=== PATIENT | female | born 1995 | race Two or more races ===

== ENCOUNTER 2024-01-25 03:45 | Emergency (ER) | payer MEDICAID, SELFPAY ==
[2024-01-25 03:48] VITALS: PULSE 70; RESP 20; O2SAT 99; BMI 28.5
[2024-01-25 04:03] VITALS: BP 157/92; PULSE 89; RESP 17; TEMP 36.7; O2SAT 100
--- NOTE | 2024-01-25 04:04 | XR_ITS ---
Examination: CT abdomen and pelvis without contrast. Coronal 3-D reconstructions. Sagittal 2-D reconstructions. Date and time of exam:January 25, 2024 0653 hrs. Indications: Onset right-sided flank pain beginning one week ago CTDI: vol (mGy): 8.72 DLP: (mGycm): 472 Technique: Axial images of the abdomen have been obtained, 3 mm slice thickness Intravenous contrast material has not been administered. Low dose protocols were performed. One or more of the following dose reduction techniques were used; automated exposure control, adjustment of the mA and/or KV according to patient size, use of iterative reconstruction technique. Findings: No focal liver or splenic lesions Gallstones, gallbladder wall appears thickened No pancreatic or adrenal mass No renal or ureteral calculi, no hydronephrosis Aorta normal size Normal appendix No bowel obstruction Anteverted uterus with satisfactory position intrauterine device No bladder mass or bladder calculi Osseous structures intact Impression: Suspicious for acute calculus cholecystitis, consider HIDA scan or MRCP follow-up No renal or ureteral calculi, no hydronephrosis Normal appendix No bladder mass or bladder calculi
--- NOTE | 2024-01-25 04:05 | XR_ITS ---
Examination: Abdomen sonogram, Limited Date and time of exam: January 25, 2024 0423 hrs. Indications: Right upper abdominal pain and tenderness nausea vomiting beginning one week ago Technique: Real-time bermudez scale transabdominal sonographic images of the upper abdomen obtained. Findings: Multiple gallstones Gallbladder wall measures 0.38 cm Common bile duct is enlarged 0.7 cm poorly visualized Pancreas is obscured by bowel gas Liver 16.6 cm no focal liver lesions normal hepatopedal portal venous flow Patent IVC Impression: Cholelithiasis Suspicious for cholecystitis Abnormally enlarged common bile duct Consider MRCP follow-up to confirm cholecystitis and exclude stricture or stones in the common bile duct
--- NOTE | 2024-01-25 04:11 | PD.EDABDPN ---
ED Abdominal Pain RME/HPI General Chief Complaint: Abdominal Pain Stated complaint: R flank pain Time seen by provider: 01/25/24 04:04 Arrival date/time: 01/25/24 03:45 RME / HPI RME / HPI narrative: This section includes all my notes and documentations, including HPI, PE, and ED course. Vaughn Diallo MD HPI: 28-year-old female here with about a week history of RUQ abdominal pain. Worse in the past few days with vomiting. No hematemesis or coffee-ground emesis. Decreased oral intake due to the pain. Seems to be worse with eating. No fever. No urinary symptoms. No history of abdominal surgery. No other complaints. ROS: Gastrointestinal: negative except as documented in HPI. Genitourinary: negative except as documented in HPI. Musculoskeletal: negative except as documented in HPI. Skin: negative except as documented in HPI. Neurological: negative except as documented in HPI. Physical Exam: General: Alert and oriented. In severe pain. Eyes: Conjunctivae and lids clear. Lungs: No respiratory distress. Abdomen: Soft with severe RUQ tenderness. Normal bowel sounds. No distension. No rebound or guarding. Back: No CVA tenderness. Skin: Warm and dry. Neuro: Alert and oriented X 3. I reviewed EMS notes. I ordered diagnostic test and Zofran and Toradol and morphine. At 6 AM, the care of the patient was transferred Dr. Hurtado. Vaughn Diallo MD Related Data Home Medications ?Medication ?Instructions ?Recorded ?Confirmed No Known Home Medications 01/25/24 01/25/24 Allergies Allergy/AdvReac Type Severity Reaction Status Date / Time No Known Allergies Allergy Verified 01/25/24 03:57 Course Quality Measures none Orders Category Date Time Status Saline [Insert IV] NOW Care 01/25/24 04:[address] abdomen pelvis wo con Stat Exams 01/25/24 04:04 Ordered US gall bladder Stat Exams 01/25/24 04:05 Taken Amylase Stat Lab 01/25/24 04:06 Ordered CBC Stat Lab 01/25/24 04:06 Ordered CMP [Comprehensive Metabolic Panel] Stat Lab 01/25/24 04:06 Ordered Drug Screen,Urine Stat Lab 01/25/24 04:06 Ordered HCG Qualitative,Urine Stat Lab 01/25/24 04:06 Ordered HCG,Qualitative Serum Stat Lab 01/25/24 04:06 Ordered Lipase Stat Lab 01/25/24 04:06 Ordered Magnesium Stat Lab 01/25/24 04:06 Ordered UA [Urinalysis] Stat Lab 01/25/24 04:06 Ordered Ketorolac Inj [Toradol Inj] Med 01/25/24 04:05 Discontinued 30 mg IVP X1 ONE Morphine Inj Med 01/25/24 04:05 Discontinued 4 mg IVP X1 ONE Ondansetron Inj [Zofran Inj] Med 01/25/24 04:05 Discontinued 4 mg IV X1 ONE Vital Signs Vital signs: Vital Signs Temperature 98.0 F 01/25/24 04:03 Pulse Rate 89 01/25/24 04:03 Respiratory Rate 17 01/25/24 04:03 Blood Pressure 157/92 H 01/25/24 04:03 Pulse Oximetry (%) 100 01/25/24 04:03 Oxygen Delivery Method Room Air 01/25/24 04:03 Abdominal Pain MDM Patient data External records reviewed:: None Clinical information provided by:: patient and EMS Social determinants that could affect healthcare access:: none Patient has the following chronic illnesses:: None How is presenting disease/condition affected by chronic disease/condition?: no chronic disease Evaluation data The following diagnostics were reviewed and interpreted by me:: other (specify) Lab and/or radiology exams considered but not ordered:: None Interpretation Summary: Diagnostic tests pending Medications / Prescriptions Medications or Prescriptions considered but not ordered:: None Medication administrations:: Medication Administration History Discontinued Medications Ketorolac Tromethamine (Ketorolac Inj 30 Mg/Ml Vial) 30 mg IVP X1 ONE Stop: 01/25/24 04:06 Last Admin: 01/25/24 05:05 Dose: 30 mg Documented By: DESI Morphine Sulfate (Morphine Sulf Inj 10 Mg/Ml Vial) 4 mg IVP X1 ONE Stop: 01/25/24 04:06 Last Admin: 01/25/24 05:04 Dose: 4 mg Documented By: DESI Ondansetron HCl (Ondansetron Inj 2 Mg/Ml Inj 2 Ml) 4 mg IV X1 ONE; Protocol Stop: 01/25/24 04:06 Last Admin: 01/25/24 05:05 Dose: 4 mg Documented By: DESI Zofran and Toradol and morphine Consultations Consultation(s) initiated? (list below): No Diagnosis Differential diagnosis abdominal pain: acute appendicitis, calculus of kidney, diverticulitis, gastroenteritis, pancreatitis and small bowel obstruction Most likely diagnosis given after review of the tests above:: Diagnostic tests pending Admission Indicated Admission indicated?: not indicated Admission Request Was there a request for admission?: No Disposition Plan Disposition Plan: other (specify) (Diagnostic tests pending) Discharge Plan Prescriptions/Referrals Prescriptions/Med Rec: No Action No Known Home Medications Referrals: Hoang Hahn MD [Primary Care Provider] - In 1 week Problem List Clinical Impression: Abdominal pain Patient/Caregiver Discharge Instructions Print Language: Citizen Of [place]
[2024-01-25] MEDS: MORPHINE SULF INJ 10 MG/ML VIAL 4 MG IVP (05:04)
[2024-01-25] MEDS: KETOROLAC INJ 30 MG/ML VIAL IVP (05:05)
[2024-01-25] MEDS: ONDANSETRON INJ 2 MG/ML INJ 2 ML 4 MG IV (05:05)
[2024-01-25 05:09] VITALS: BP 119/66; PULSE 76; RESP 18; TEMP 36.7; O2SAT 98
[2024-01-25 05:48] LABS: Basophils # (Auto) 0.1 Thou/mm3 (0.0-0.2); Basophils % (Auto) 0 % (0-2.5); Eosinophils # (Auto) 0.1 Thou/mm3 (0.0-0.5); Eosinophils % (Auto) 1 % (0-10); Hematocrit 35.4 % (36.0-46.0); Hemoglobin 12.3 g/dL (12.0-16.0); Immature Granulocytes % (Auto) 0 % (0-0); Immature Granulocytes Auto 0.03 Thou/mm3 (0.00-0.00); Lymphocytes # (Auto) 1.4 Thou/mm3 (1.0-4.8); Lymphocytes % (Auto) 12 % (10-50); Mean Corpuscular HGB Conc 34.7 g/dl (31.0-37.0); Mean Corpuscular Hemoglobin 33.7 pg (25.0-35.0); Mean Corpuscular Volume 97 fL (80-100); Monocytes # (Auto) 0.7 Thou/mm3 (0.0-0.8); Monocytes % (Auto) 5 % (0-12); Neutrophils # (Auto) 9.9 Thou/mm3 (1.8-7.7); Neutrophils % (Auto) 81 % (37-80); Nucleated Red Blood Cell % 0 /100 WBC (0); Platelet Count 387 Thou/mm3 (140-440); RDW Standard Deviation 44.9 fL (36.4-46.3); Red Blood Count 3.65 Miln/mm3 (4.00-5.20); White Blood Count 12.1 Thou/mm3 (3.6-11.0)
[2024-01-25 06:03] LABS: HCG,Qualitative Serum Negative
[2024-01-25 06:12] LABS: Alanine Aminotransferase 76 U/L (10-49); Albumin, Serum 4.1 gm/dL (3.5-5.0); Albumin/Globulin Ratio 1.5 (1.2-2.2); Alkaline Phosphatase 123 U/L (46-116); Amylase 53 U/L (30-118); Anion Gap 6 (7-16); Aspartate Amino Transferase 171 U/L (0-34); BUN/Creatinine Ratio 21 Ratio (12-20); Bilirubin,Total 0.8 mg/dL (0.3-1.2); Blood Urea Nitrogen 17 mg/dL (9-23); Calcium 8.2 mg/dL (8.3-10.6); Calcium (Corrected) 8.2 mg/dL (8.5-10.1); Chloride 107 mMol/L (98-107); Creatinine (Component) 0.8 mg/dL (0.6-1.3); Estimated Creatinine Clearance 96.5 mL/min (>60); Globulin 2.7 gm/dL (2.3-3.5); Glucose 111 mg/dL (74-106); Lipase 41 U/L (12-53); Magnesium 2.1 mg/dL (1.6-2.6); Osmolality,Calculated 278 (275-295); Potassium 3.5 mMol/L (3.4-5.1); Sodium 138 mMol/L (136-145); Total Protein 6.8 gm/dL (5.7-8.2); eGFR > 60 See Note
--- NOTE | 2024-01-25 08:15 | PD.EDADDENDU ---
Emergency Room Addendum Addendum Narrative: Patient is a very pleasant 28-year-old female with right upper quadrant abdominal pain for a week. She awaits imaging studies for her suspected cholecystitis. The results are back and the CT scan is suspicious for acute cholecystitis, requesting MRCP which is not available this time. I discussed the findings with the patient. She feels comfortable going home with pain medications and antibiotics and return tomorrow morning for MRCP for final diagnosis
[2024-01-25 09:11] VITALS: BP 107/68; PULSE 78; RESP 16; TEMP 36.6; O2SAT 99
== END 2024-01-25 09:11 | disposition home or self-care (01) ==
PROVIDERS: Emergency Medicine; Emergency Provider Emergency Medicine; PCP Family Medicine
DX: R10.11 Right upper quadrant pain (principal)
CPT/HCPCS: 36415; 74176; 76705; 80053; 80307; 81001; 81025; 82150; 83690; 83735; 84703; 85025; 96374; 96375; 99284; J1885; J2270; J2405

== ENCOUNTER 2024-01-26 06:25 | Emergency (ER) | payer MEDICAID, SELFPAY ==
--- NOTE | 2024-01-26 | XR_ITS ---
MRI abdomen, without contrast. MRCP Date and time of exam: January 26, 2024 0804 hours INDICATIONS: Right upper abdominal pain beginning today Technique: Multiple axial and coronal images of the abdomen have been obtained with the Siemens 1.5T MRI scanner. Images obtained included T1 weighted transverse images, T2-weighted transverse images, T2-weighted transverse images fat-suppressed, T2 weighted haste fat suppressed transverse images, T1 weighted images, in and out of phase images, T2-weighted coronal images, breath hold, T2 weighted haze coronal images as well as T2 weighted coronal thick slab images, MRCP. Findings: Mild intrahepatic biliary tract dilatation Cholelithiasis, no significant gallbladder wall thickening or edema Common hepatic duct 9 mm, 2 mm stone in in the distal common bile duct coronal image 11 Negative for pancreatitis No hydronephrosis Spleen not enlarged IMPRESSION: Cholelithiasis, negative for cholecystitis 2 mm stone in the distal common bile duct, coronal image 11
[2024-01-26 06:26] VITALS: BMI 28.5
[2024-01-26 06:32] VITALS: BP 127/85; PULSE 72; RESP 19; TEMP 36.6; O2SAT 97
--- NOTE | 2024-01-26 07:07 | PD.EDRME ---
Rapid Medical Screening Exam RME Arrival date/time: 01/26/24 06:25 28-year-old female presents emergency department complains of abdominal pain patient was evaluated yesterday instructed return to the ER for MRCP and further evaluation Chief Complaint: Recheck/Abnormal Lab/Rx Time Seen by Provider: 01/26/24 06:28 Vital signs: Vital Signs Temperature 97.8 F 01/26/24 06:32 Pulse Rate 72 01/26/24 06:32 Respiratory Rate 19 01/26/24 06:32 Blood Pressure 127/85 H 01/26/24 06:32 Pulse Oximetry (%) 97 01/26/24 06:32 Oxygen Delivery Method Room Air 01/26/24 06:32
[2024-01-26 07:37] VITALS: BP 120/83
[2024-01-26 07:38] VITALS: BP 120/83; PULSE 67; RESP 20; TEMP 36.9; O2SAT 98
--- NOTE | 2024-01-26 07:38 | PC.NURSE ---
Pt coming in from ED lobby with c/o RUQ abd pain x1 week; pt states, I was here yesterday for the same issue and they did an ultrasound of my stomach. They saw that there was a possible infection on my gallbladder and told me to come back today for an MRI of my gallbladder. Pt reports a 3/10 pain but denies N/V/diarrhea today. Pt denies any PMH. MRI pending at this time.
[2024-01-26 07:45] LABS: Basophils % (Auto) 1 % (0-2.5); Eosinophils # (Auto) 0.3 Thou/mm3 (0.0-0.5); Eosinophils % (Auto) 4 % (0-10); Hematocrit 40.5 % (36.0-46.0); Hemoglobin 13.9 g/dL (12.0-16.0); Immature Granulocytes % (Auto) 0 % (0-0); Immature Granulocytes Auto 0.02 Thou/mm3 (0.00-0.00); Lymphocytes # (Auto) 1.5 Thou/mm3 (1.0-4.8); Lymphocytes % (Auto) 26 % (10-50); Mean Corpuscular HGB Conc 34.3 g/dl (31.0-37.0); Mean Corpuscular Hemoglobin 33.7 pg (25.0-35.0); Mean Corpuscular Volume 98 fL (80-100); Monocytes # (Auto) 0.3 Thou/mm3 (0.0-0.8); Monocytes % (Auto) 6 % (0-12); Neutrophils # (Auto) 3.6 Thou/mm3 (1.8-7.7); Neutrophils % (Auto) 63 % (37-80); Nucleated Red Blood Cell % 0 /100 WBC (0); Platelet Count 428 Thou/mm3 (140-440); RDW Standard Deviation 46.2 fL (36.4-46.3); Red Blood Count 4.12 Miln/mm3 (4.00-5.20); White Blood Count 5.7 Thou/mm3 (3.6-11.0)
--- NOTE | 2024-01-26 07:49 | PC.NURSE ---
MRI called at this time to report hat pt is ready for MRI & MRI screening has been completed. Per MRI staff, will come get pt soon.
[2024-01-26 07:56] LABS: Alanine Aminotransferase 416 U/L (10-49); Albumin, Serum 4.6 gm/dL (3.5-5.0); Albumin/Globulin Ratio 1.6 (1.2-2.2); Alkaline Phosphatase 165 U/L (46-116); Anion Gap 5 (7-16); Aspartate Amino Transferase 229 U/L (0-34); BUN/Creatinine Ratio 11 Ratio (12-20); Bilirubin,Total 1.8 mg/dL (0.3-1.2); Blood Urea Nitrogen 8 mg/dL (9-23); Calcium 9.8 mg/dL (8.3-10.6); Calcium (Corrected) 9.8 mg/dL (8.5-10.1); Carbon Dioxide 25.9 mMol/L (20.0-31.0); Chloride 106 mMol/L (98-107); Creatinine (Component) 0.7 mg/dL (0.6-1.3); Estimated Creatinine Clearance 110.2 mL/min (>60); Globulin 2.9 gm/dL (2.3-3.5); Glucose 91 mg/dL (74-106); Lipase 37 U/L (12-53); Osmolality,Calculated 272 (275-295); Potassium 4.5 mMol/L (3.4-5.1); Sodium 137 mMol/L (136-145); Total Protein 7.5 gm/dL (5.7-8.2); eGFR > 60 See Note
--- NOTE | 2024-01-26 08:45 | PC.NURSE ---
@Hector- RN at bedside connecting pt back to monitor. Pt states, Is it ok if I leave and you guys just call me back if there is something wrong with my MRI results? I have to go care for my kids. I can wait until 914. @[id number]- RN made Dr. Rodrigues aware that pt only able to wait until 914 before pt has to go home for her kids. Per Dr. Rodrigues, she will need to sign an AMA form.
[2024-01-26 09:00] VITALS: BP 116/56; PULSE 66; RESP 17; TEMP 37; O2SAT 95
--- NOTE | 2024-01-26 09:18 | PC.NURSE ---
RN at bedside with pt; pt states, I need to leave now; it's taking too long & I need to care for my kids. Pt educated about risks & benefits of leaving AMA. Pt A&Ox4, GCS 15. Pt signed AMA form and encouraged to return.
== END 2024-01-26 09:20 | disposition left against medical advice (07) ==
LOC: SERX 06:41
PROVIDERS: Nurse Practitioner Primary Care; Emergency Provider Emergency Medicine
DX: R10.11 Right upper quadrant pain (principal); Z53.29 Procedure and treatment not carried out because of patient's decision for other reasons
CPT/HCPCS: 36415; 80053; 83690; 85025; 99284; S8037; 74181

== ENCOUNTER 2024-03-08 17:44 | Emergency (ER) | payer MEDICAID, SELFPAY ==
[2024-03-08 17:54] VITALS: BP 158/84; PULSE 86; RESP 22; TEMP 36.6; O2SAT 99; BMI 30.9
--- NOTE | 2024-03-08 18:13 | PD.EDRME ---
Rapid Medical Screening Exam RME Arrival date/time: 03/08/24 17:44 28-year-old female recently had cholecystectomy done yesterday presents emergency department complaining of abdominal pain with nausea vomiting. Chief Complaint: Abdominal Pain Time Seen by Provider: 03/08/24 18:05 Vital signs: Vital Signs Temperature 97.9 F 03/08/24 17:54 Pulse Rate 86 03/08/24 17:54 Respiratory Rate 22 H 03/08/24 17:54 Blood Pressure 158/84 H 03/08/24 17:54 Pulse Oximetry (%) 99 03/08/24 17:54 Oxygen Delivery Method Room Air 03/08/24 17:54 Vital signs reviewed by provider: Yes
[2024-03-08] MEDS: KETOROLAC INJ 60 MG/2 ML VIAL 30 MG IM (18:24)
[2024-03-08] MEDS: METOCLOPRAMIDE INJ 5 MG/ML VIAL 2 ML 10 MG IM (18:24)
[2024-03-08 19:01] LABS: Basophils % (Auto) 0 % (0-2.5); Eosinophils % (Auto) 0 % (0-10); Hematocrit 40.4 % (36.0-46.0); Hemoglobin 14.2 g/dL (12.0-16.0); Immature Granulocytes % (Auto) 0 % (0-0); Immature Granulocytes Auto 0.03 Thou/mm3 (0.00-0.00); Lymphocytes # (Auto) 0.5 Thou/mm3 (1.0-4.8); Lymphocytes % (Auto) 5 % (10-50); Mean Corpuscular HGB Conc 35.1 g/dl (31.0-37.0); Mean Corpuscular Hemoglobin 33.9 pg (25.0-35.0); Mean Corpuscular Volume 96 fL (80-100); Monocytes # (Auto) 0.1 Thou/mm3 (0.0-0.8); Monocytes % (Auto) 1 % (0-12); Neutrophils # (Auto) 9.8 Thou/mm3 (1.8-7.7); Neutrophils % (Auto) 94 % (37-80); Nucleated Red Blood Cell % 0 /100 WBC (0); Platelet Count 423 Thou/mm3 (140-440); Red Blood Count 4.19 Miln/mm3 (4.00-5.20); White Blood Count 10.5 Thou/mm3 (3.6-11.0)
[2024-03-08 19:10] LABS: HCG,Qualitative Serum Negative
[2024-03-08 19:12] LABS: Alanine Aminotransferase 19 U/L (10-49); Albumin/Globulin Ratio 1.7 (1.2-2.2); Alkaline Phosphatase 75 U/L (46-116); Anion Gap 11 (7-16); Aspartate Amino Transferase 21 U/L (0-34); BUN/Creatinine Ratio 13 Ratio (12-20); Bilirubin,Total 1.4 mg/dL (0.3-1.2); Blood Urea Nitrogen 9 mg/dL (9-23); Calcium 9.7 mg/dL (8.3-10.6); Calcium (Corrected) 9.7 mg/dL (8.5-10.1); Carbon Dioxide 19.8 mMol/L (20.0-31.0); Chloride 104 mMol/L (98-107); Creatinine (Component) 0.7 mg/dL (0.6-1.3); Estimated Creatinine Clearance 114.7 mL/min (>60); Glucose 150 mg/dL (74-106); Lipase 36 U/L (12-53); Osmolality,Calculated 271 (275-295); Potassium 4.4 mMol/L (3.4-5.1); Sodium 135 mMol/L (136-145); eGFR > 60 See Note
--- NOTE | 2024-03-08 19:29 | EDNOTE_ITS ---
ED Abdominal Pain RME/HPI General Chief Complaint: Abdominal Pain Stated complaint: ABD PAIN, N/V Time seen by provider: 03/08/24 18:05 Arrival date/time: 03/08/24 17:44 Source: patient Mode of arrival: ambulatory Limitations: no limitations RME / HPI RME / HPI narrative: 03/08/24 17:44 28-year-old female recently had cholecystectomy done yesterday presents emerge ncy department complaining of abdominal pain with nausea vomiting. Dr. Lai?s Main ED Evaluation: 28-year-old female s/p cholecystectomy at [facility] this past day released at 12PM brought in by family member who presents to the emergency department for complaints of severe generalized abdominal pain. Family member at bedsides provides the history. He states patient has had nausea and vomiting continuously since being released. She has been NPO since 10PM last night and has been unable to tolerate PO intake including liquids. She has had multiple episodes of nonbloody, bilious vomiting and severe nausea. He also reports subjective fever and chills. He notes she was prescribed Percocet and stool softener but the prescriptions were not availble for pick-up. Patient comes in for further evaluation of her post operative pain. Related Data Previous Rx's ?Medication ?Instructions ?Recorded amoxicillin 500 mg-potassium 1 tab PO BID #14 tabs 01/25/24 clavulanate 125 mg tablet (Augmentin) hydrocodone 5 mg-acetaminophen 325 1 tab PO Q6H PRN pain #10 tabs 01/25/24 mg tablet oxycodone-acetaminophen 5 mg-325 1 tab PO Q8H PRN pain #12 tabs 03/09/24 mg tablet (Percocet) Allergies Allergy/AdvReac Type Severity Reaction Status Date / Time No Known Allergies Allergy Verified 01/25/24 03:57 Review of Systems Review of Systems Systems Reviewed: All systems reviewed, normal except as documented Past Medical History Past Medical History CARDIAC: Negative Congestive Heart Failure RESPIRATORY: Negative Chronic Obstructive Pulmonary Disease (COPD) GENITOURINARY: Negative Renal Disease ENDOCRINE: Negative Diabetes Mellitus Type 1 or Diabetes Mellitus Type 2 Social History SMOKING STATUS: Never smoker ED Exam Narrative Physical exam: GENERAL APPEARANCE: alert and oriented x 4, well-developed, well-nourished, moderate to severe pain distress VITALS: All vitals were reviewed and the pulse ox is 99% on room air, which is normal according to my interpretation. HEENT: Normocephalic, atraumatic; pupils equal, round, reactive to light; EOMI; mucous membranes pink, moist; oropharynx clear NECK: Supple LUNGS: CTABL; no wheezes, no rales, no rhonchi HEART: Regular rate, regular rhythm; normal S1, S2; no murmurs ABDOMEN: non distended; normal BS; soft, generalized abdominal tenderness, no rigidity; no masses, no organomegaly, no hernia. There are multiple fresh anterior abdominal surgical scars with no active bleeding, no surrounding erythema, well-appearing. BACK: no CVA tenderness EXTREMITIES: atraumatic; no edema NEUROLOGIC: awake; alert and oriented x4; cranial nerves II-XII grossly intact; no focal sensory or motor deficits PSYCHIATRIC: appropriate mood and affect SKIN: warm, dry, normal color; no rashes General Limitations: Present no limitations Course Quality Measures none Orders Category Date Time Status CT Screening NOW Care 03/08/24 19:42 Completed Province Archivist STAT Care 03/08/24 19:40 Completed Continuous Pulse Oximetry STAT Care 03/08/24 19:41 Completed EKG (ED ONLY) *Do not use* NOW Care 03/08/24 19:40 Completed Insert IV STAT Care 03/08/24 19:40 Completed NPO STAT Care 03/08/24 19:[address] abdomen pelvis w con Stat Exams 03/08/24 19:42 Completed EKG (ED Only) Stat Exams 03/08/24 19:40 Draft CBC Stat Lab 03/08/24 18:27 Completed CMP [Comprehensive Metabolic Panel] Stat Lab 03/08/24 18:27 Completed HCG,Qualitative Serum Stat Lab 03/08/24 18:27 Completed Lipase Stat Lab 03/08/24 18:27 Completed Magnesium Stat Lab 03/08/24 18:27 Completed Partial Thromboplastin Time Stat Lab 03/08/24 18:27 Completed Prothrombin Time with INR Stat Lab 03/08/24 18:27 Completed HYDROmorphone INJ [Dilaudid Inj] Med 03/08/24 19:40 Discontinued 0.5 mg IVP Q30MIN PRN HYDROmorphone INJ [Dilaudid Inj] Med 03/09/24 00:22 Discontinued 0.5 mg IVP X1 ONE Ketorolac Inj [Toradol Inj] Med 03/08/24 18:13 Discontinued 30 mg IM X1 ONE Metoclopramide Inj [Reglan Inj] Med 03/08/24 18:13 Discontinued 10 mg IM X1 ONE Sodium Chloride 0.9% 1000 ml [Ns] 1,000 ml Med 03/08/24 19:40 Discontinued IV 999 mls/hr Reevaluation(s) Reevaluation #1: Patient states she feels better compared to when she initially came in. Patient is given water and crackers to see if she can tolerate by mouth. Time: 23:14 Reevaluation #2: Patient tolerated PO fluids. Patient is stable to be discharged home. Time: 23:51 Vital Signs Vital signs: Vital Signs Temperature 97.9 F 03/08/24 17:54 Pulse Rate 86 03/08/24 17:54 Respiratory Rate 22 H 03/08/24 17:54 Blood Pressure 158/84 H 03/08/24 17:54 Pulse Oximetry (%) 99 03/08/24 17:54 Oxygen Delivery Method Room Air 03/08/24 17:54 Procedures -ED Procedure Comment Patient's EKG at 20:07 showed normal sinus rhythm at 71 with normal axis, no ectopy. ST abnormalities in the inferior leads but no signs of STEMI. Abdominal Pain MDM MDM Narrative MDM Narrative:: Scribe Attestation: Mike Dunham, am scribing for and in the presence of Dr. Lai. Provider Notation: Although this document has been carefully reviewed, there may still be some phonetic and other typographical errors. These errors are purely grammatical due to imperfections in the software program and should not be construed in any way to compromise the substance of the patient's medical care during this visit. Patient data External records reviewed:: [facility] previous records Clinical information provided by:: patient Social determinants that could affect healthcare access:: none Patient has the following chronic illnesses:: None How is presenting disease/condition affected by chronic disease/condition?: uneffected by Evaluation data The following diagnostics were reviewed and interpreted by me:: lab results, radiology exam(s) and EKG tracing(s) (done at 2006, NSR, rate of 71, normal axis, no ectopy, nonspecific inferior wall ST abnormalities, no STEMI, according to my interpretation.) Lab and/or radiology exams considered but not ordered:: None Interpretation Summary: [facility] Report Signed Patient: KEVIN BALL Record#: [id number] Birthdate: 1995 Age/Sex: 28 / F [facility] Att[facility] Dr: Ordering Physician: Emil Lai MD Date of Service: 03/08/24 Procedure(s): CT abdomen pelvis w con Accession Number(s): [id number] cc: Dez Lee MD; NO PRIMARY/FAMILY,PHYSICIAN; Emil Lai MD~ Examination: CT abdomen with intravenous contrast CT pelvis with intravenous contrast 2-D coronal reconstructions 2-D sagittal reconstructions Date and time of exam:March 08, 2024 0940 hrs. Indications: Abdominal pain nausea vomiting status post cholecystectomy today. CTDI: vol (mGy) 8.21 DLP: (mGycm) 498 Technique: Multiple axial sections of the abdomen and pelvis have been obtained. 64 slice high-resolution scanner used. 3 mm axial sections have been obtained, post intravenous injection 60 cc [id number] 2-D sagittal, coronal reconstructions obtained. Low dose protocols were performed. One or more of the following dose reduction techniques were used; automated exposure control, adjustment of the mA and/or KV according to patient size, use of iterative reconstruction technique. Findings: Pneumoperitoneum Absent gallbladder Small fluid collection in the gallbladder fossa 4.7 x 2.6 cm No extrahepatic biliary tract dilatation No gallstones No renal or ureteral calculi, no hydronephrosis Aorta normal size Normal appendix Mild free fluid in the abdomen and pelvis Intrauterine device satisfactory position Urinary bladder intact Impression: Postop pneumoperitoneum Fluid collection in the gallbladder fossa 4.7 x 2.6 cm, differential would include hematoma, biliary leak Suggest follow-up HIDA scan to assess for biliary leak as clinically warranted Dictated By: Dez Lee MD Signed By: <Electronically signed by Dez Lee MD in OV> 03/08/24 2238 Medications / Prescriptions Medications or Prescriptions considered but not ordered:: None Medication administrations:: Medication Administration History Discontinued Medications Hydromorphone HCl (Hydromorphone Inj 2 Mg/Ml Vial) 0.5 mg IVP Q30MIN PRN PRN Reason: abdominal pain Stop: 03/08/24 22:42 Last Admin: 03/08/24 20:35 Dose: 0.5 mg Documented By: ANA MARÍA Admin: 03/08/24 19:50 Dose: 0.5 mg Documented By: ANA MARÍA Hydromorphone HCl (Hydromorphone Inj 2 Mg/Ml Vial) 0.5 mg IVP X1 ONE Stop: 03/09/24 00:23 Last Admin: 03/09/24 00:36 Dose: 0.5 mg Documented By: MOR Sodium Chloride (Ns) 1,000 mls @ 999 mls/hr IV .Q1H1M ONE Stop: 03/08/24 20:40 Last Infusion: 03/08/24 21:52 Dose: Infused Documented By: ANA MARÍA Admin: 03/08/24 19:49 Dose: 999 mls/hr Documented By: ANA MARÍA Ketorolac Tromethamine (Ketorolac Inj 60 Mg/2 Ml Vial) 30 mg IM X1 ONE Stop: 03/08/24 18:14 Last Admin: 03/08/24 18:24 Dose: 30 mg Documented By: BONG Metoclopramide HCl (Metoclopramide Inj 5 Mg/Ml Vial 2 Ml) 10 mg IM X1 ONE; Protocol Stop: 03/08/24 18:14 Last Admin: 03/08/24 18:24 Dose: 10 mg Documented By: BONG As above Consultations Consultation(s) initiated? (list below): No Diagnosis Differential diagnosis abdominal pain: other (vomiting associated with post- operative pain, surgical complication, surgical abscess, biliary leak, post surgical bleeding) Most likely diagnosis given after review of the tests above:: see below Admission Indicated Admission indicated?: not indicated Admission Request Was there a request for admission?: No Disposition Plan Disposition Plan: Discharge Discharge Attestation Discharge Attestation: The patient and all family members were given an opportunity to ask questions and understood the discharge instructions. Discharge instructions specifically effects, indications for sooner follow up or return to the emergency department, and the expected course of current diagnosis. Patient condition: Stable Discharge Plan Plan Patient Disposition: HOME (Self Care) Disposition Comment: Stable for discharge Patient condition on transfer: Stable Prescriptions/Referrals Prescriptions/Med Rec: New oxycodone-acetaminophen [Percocet] 5-325 mg tablet 1 tab PO Q8H MDD 3 PRN (Reason: pain) Qty: 12 0RF No Action hydrocodone-acetaminophen 5-325 mg tablet 1 tab PO Q6H MDD 4 tab PRN (Reason: pain) Qty: 10 0RF amoxicillin-pot clavulanate [Augmentin] 500-125 mg tablet 1 tab PO BID Qty: 14 0RF Referrals: No Primary/Family,Physician [Primary Care Provider] - In 1 week Problem List Clinical Impression: Post-operative pain, Post-operative nausea and vomiting Patient/Caregiver Discharge Instructions Discharge Activity: activity as tolerated Education Materials: Complementary Care for Pain, Taking Opioid Medicines, Managing Post-Op Pain at Home, ED Diet for Vomiting or ... Additional Instructions: If you not improving within the next day or so or if you are worsening in any way please feel free to return to the emergency department right away and we will help you Otherwise you should follow-up with your primary care doctor within the next several days as well as your surgeon on your next scheduled postop visit. We have called in a prescription for you for Percocet at your pharmacy. Please take this medication as directed. Print Language: [place] Stand Alone Forms: Bonnie Award Info., Patient Portal Info Letter
--- NOTE | 2024-03-08 19:40 | EKG_ITS ---
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
--- NOTE | 2024-03-08 19:42 | XR_ITS ---
Examination: CT abdomen with intravenous contrast CT pelvis with intravenous contrast 2-D coronal reconstructions 2-D sagittal reconstructions Date and time of exam:March 08, 2024 0940 hrs. Indications: Abdominal pain nausea vomiting status post cholecystectomy today. CTDI: vol (mGy) 8.21 DLP: (mGycm) 498 Technique: Multiple axial sections of the abdomen and pelvis have been obtained. 64 slice high-resolution scanner used. 3 mm axial sections have been obtained, post intravenous injection 60 cc [id number] 2-D sagittal, coronal reconstructions obtained. Low dose protocols were performed. One or more of the following dose reduction techniques were used; automated exposure control, adjustment of the mA and/or KV according to patient size, use of iterative reconstruction technique. Findings: Pneumoperitoneum Absent gallbladder Small fluid collection in the gallbladder fossa 4.7 x 2.6 cm No extrahepatic biliary tract dilatation No gallstones No renal or ureteral calculi, no hydronephrosis Aorta normal size Normal appendix Mild free fluid in the abdomen and pelvis Intrauterine device satisfactory position Urinary bladder intact Impression: Postop pneumoperitoneum Fluid collection in the gallbladder fossa 4.7 x 2.6 cm, differential would include hematoma, biliary leak Suggest follow-up HIDA scan to assess for biliary leak as clinically warranted
[2024-03-08] MEDS: SODIUM CHLORIDE 0.9% 1000 ML 1,000 ML 999 ML IV (19:49)
[2024-03-08] MEDS: HYDROmorphone INJ 2 MG/ML VIAL 0.5 MG IVP ×2 (19:50→20:35)
[2024-03-08 20:05] VITALS: BP 133/89; PULSE 70; RESP 16; O2SAT 100
[2024-03-08 20:09] LABS: INR 1.1 (0.9-1.3); Partial Thromboplastin Time 26.3 Seconds (22.0-36.0); Prothrombin Time 11.5 Seconds (9.0-12.2)
[2024-03-08 20:17] LABS: Magnesium 1.8 mg/dL (1.6-2.6)
[2024-03-08 22:46] VITALS: BP 122/78; PULSE 62; RESP 17; TEMP 36.6; O2SAT 98
[2024-03-08 23:42] VITALS: BP 130/85; PULSE 60; RESP 17; O2SAT 100
[2024-03-09] MEDS: HYDROmorphone INJ 2 MG/ML VIAL 0.5 MG IVP (00:36)
== END 2024-03-09 00:53 | disposition home or self-care (01) ==
PROVIDERS: Emergency Provider Emergency Medicine
DX: G89.18 Other acute postprocedural pain (principal); K91.0 Vomiting following gastrointestinal surgery; Y83.8 Other surgical procedures as the cause of abnormal reaction of the patient, or of later complication, without mention of misadventure at the time of the procedure
CPT/HCPCS: 36415; 74177; 80053; 81001; 83690; 83735; 84703; 85025; 85610; 85730; 93005; 96361; 96372; 96374; 99285; A4649; J1885; J2765; J3490; J7030; Q9967